=== PATIENT | female | born 1950 | race American Indian/Alaskan Native ===

== ENCOUNTER 2019-06-11 18:57 | Emergency (ER) | payer SELFPAY ==
[~2019-06-11] VITALS: Ht 154.9 cm; Wt 55.0 kg
[2019-06-11] MEDS ORDERED: HYDROCODONE/ACETAMINOPHEN 5/325MG TABLET PO ONE (21:00)
[2019-06-11 21:42] LABS: BASOPHILS % 1.2 % (0.0-2.0); HEMATOCRIT. 36.4 % (36.0-48.0); HEMOGLOBIN. 12.2 g/dL (12.0-16.0); LYMPHOCYTES % 54.1 % (20.0-50.0); MEAN CORPUSCULAR HEMOGLOBIN 31.6 pg (28.0-32.0); MEAN CORPUSCULAR VOLUME 94.3 fL (81.0-99.0); MEAN PLATELET VOLUME 9.4 fl (7.4-10.4); MONOCYTES % 10.8 % (2.0-8.0); NEUTROPHILS % 28.9 % (40.0-76.0); PLATELET 268 x1000/uL (130-400); RED BLOOD CELL COUNT 3.86 mill/uL (4.2-5.4); RED CELL DISTRIBUTION WIDTH 14.3 % (11.6-14.6)
[2019-06-11 21:48] LABS: CHLORIDE 105 mEq/L (98-107)
[2019-06-11 21:51] LABS: ETHANOL BLOOD 157 mg/dL
[2019-06-11] MEDS ORDERED: SODIUM CHLORIDE 0.9% 1,000 ML IV ONE (22:15)
[2019-06-11] MEDS ORDERED: INSULIN REGULAR (HUMULIN R) UD 100 UNITS/ML SYR IV ONE (22:15)
[2019-06-11] MEDS ORDERED: INSULIN REGULAR (HUMULIN R) 300UNITS/3ML IV ONE (23:00)
[2019-06-12] MEDS ORDERED: METFORMIN HCL 500MG TABLET PO SCH
[2019-06-12 14:30] VITALS: BP 154/67
== END 2019-06-12 14:50 | disposition home or self-care (01) ==
LOC: ER 18:57
DX: E11.65 Type 2 diabetes mellitus with hyperglycemia (principal); M79.604 Pain in right leg; F10.129 Alcohol abuse with intoxication, unspecified; Y90.6 Blood alcohol level of 120-199 mg/100 ml; R03.0 Elevated blood-pressure reading, without diagnosis of hypertension; Z79.4 Long term (current) use of insulin
CPT/HCPCS: 36415; 80048; 80320; 82962; 85025; 96361; 96374; 99283; J1815; J7030; G0480